=== PATIENT | female | born 2005 | race Caucasian/White ===

== ENCOUNTER 2025-06-27 13:30 | Outpatient (RCR) | payer MEDICAID, SELFPAY ==
--- NOTE | 2025-06-20 14:21 | PT.OIERPT ---
PT OP Initial Eval Patient Information Outpatient Physical Therapy Treatment Date: 06/20/25 Visit Reasons: PAIN IN LEFT KNEE Medical Diagnosis: Left Knee Pain Treatment Dx #1: Left Knee Pain Treatment Dx #2: Left Knee Instability Start of Care: 06/20/25 Date of Onset: 1 year ago Smoking Status Smoking Status: Never smoker Initial Assessment Subjective: Pt is a 20 y/o female reports of chronic left knee pain (04/06) with instability ~ 1 year ago after a horse kicked her knee. Pt further mention she had a few more recent incident falling from the horse hurting her left knee. Pt's past MRI showed bone contusion and mild ACL sprain. No recent imaging has been done. Pt has limitation with standing, walking, chores, balance, riding horse, and performing recreational activities. Objective: Left Knee AROM: all motions are WNL Left Knee MMTs: grossly 4-/5 Left Hip MMTs: grossly 3+/5 Special Test (+) MCL stress test (+) Elham (+) Thessaly Palpation: TTP medial joint line SLS: unable Assessment: Pt demonstrate left medial knee pain leading to difficulty with ADLs. Pt will attempt physical therapy if pain persist Pt will be refer back to provider for further consultation Short Term and Halfway Goals 1) Increase left knee MMTs grossly to 4/5 in 6 wks to be able to perform squatting activities 2) Decrease knee pain to 2/10 in 6 wks to be able to ride horse 3) Increase hip MMTs grossly to 4-/5 in 6 wks to be able to perform recreational activities 4) Increase SLS to 20 sec in 6 wks to be able to perform self care activities 5) Indep with HEP Treatment Plan 1) Manual Therapy 2) Therapeutic Activities 3) Therapeutic Exercises 4) Modalities (ice, heat) 5) Balance Training Frequency and Duration: 2 x wk for 6 wk Certification Dates: 06/20/25 to 09/19/25 Procedure Charges OP PT Eval Mod Complex 30 minutes: Yes
--- NOTE | 2025-06-27 14:10 | PT.ODAYNRPT ---
PT Outpatient Daily Note OP Daily Note Outpatient Physical Therapy Treatment Date: 06/27/25 Visit Reasons: PAIN IN LEFT KNEE Subjective: Pt irritated and may have hurt her knee more today. 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 Pt's knee buckle x 2 after the incident. Objective: Please see flow chart for list of ther ex performed Assessment: supine exercises performed today due to reported incident. Pt had difficulty with exercises due to pain. Post ice helped the pain and soreness Plan: Continue with PT Length of Time (minutes) of Treatment: 30 Minutes Procedure Charges Therapeutic Exercise 30 minutes: Yes
== END 2025-06-27 23:59 | disposition home or self-care (01) ==
LOC: CPTX 13:30
PROVIDERS: PCP Physician Assistant Medical; Referring Provider Physician Assistant Medical; Visit Provider Physician Assistant Medical
DX: M25.562 Pain in left knee (principal); M25.362 Other instability, left knee; G89.29 Other chronic pain; R26.2 Difficulty in walking, not elsewhere classified; R26.89 Other abnormalities of gait and mobility
CPT/HCPCS: 97110; 97162

== ENCOUNTER 2025-07-18 14:30 | Outpatient (RCR) | payer MEDICAID, SELFPAY ==
--- NOTE | 2025-06-29 14:14 | PT.ODAYNRPT ---
PT Outpatient Daily Note OP Daily Note Outpatient Physical Therapy Treatment Date: 06/29/25 Visit Reasons: Pain in left knee Subjective: Pt's knee is hurting more. 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 Pt's knee continues to buckle Objective: Please see flow chart for list of ther ex performed Assessment: tolerate exercises performed with minimal pain; post ice helped with pain Plan: Continue with PT Length of Time (minutes) of Treatment: 30 Minutes Procedure Charges Therapeutic Exercise 30 minutes: Yes
--- NOTE | 2025-07-07 12:01 | PT.ODAYNRPT ---
PT Outpatient Daily Note OP Daily Note Outpatient Physical Therapy Treatment Date: 07/07/25 Visit Reasons: Pain in left knee Subjective: Pt's knee is about the same. Pt seen chiropractor and was not able to get adjusted on her left side due to knee pain. Pt has stopped some activities but continues to have knee pain Objective: Please see flow chart for list of ther ex performed Assessment: patient continues to have knee pain unable to progress patient to closed chain exercises Plan: Continue with PT Length of Time (minutes) of Treatment: 30 Minutes Procedure Charges Therapeutic Exercise 30 minutes: Yes
--- NOTE | 2025-07-14 16:15 | PT.ODAYNRPT ---
PT Outpatient Daily Note OP Daily Note Outpatient Physical Therapy Treatment Date: 07/14/25 Visit Reasons: Pain in left knee Subjective: Pt's knee continues to hurt and feels unstable. No change in pain lately Objective: Please see flow chart for list of ther ex performed Assessment: all exercises modified to isometric exercises with good tolerance. Post ice helped with pain and soreness Plan: Continue with PT Length of Time (minutes) of Treatment: 30 Minutes Procedure Charges Therapeutic Exercise 30 minutes: Yes
--- NOTE | 2025-07-18 15:33 | PT.ODS1RPT ---
PT OP Progress/Discharge Note Date of Service: 07/18/25 Progress Note/DC Note Progress Note/Discharge Note: DC Note Patient Information Visit Reasons: Pain in left knee Medical Diagnosis: Left Knee Pain Treatment Dx #1: Left Knee Pain Treatment Dx #2: Left Knee INstability Service Discharge Date: 07/18/25 Status Subjective: Pt's knee continues to hurt and feels unstable with activities. Pt still has 7/10 knee pain based upon activities. Pt has limitation with standing, chores, recreational activities, walking, and performing recreational activities. Objective: Left Knee AROM: all motions are WNL Left Knee MMTs: grossly 4-/5 Left Hip MMTs: grossly 3+/5 Special Test (+) MCL stress test (+) Melissa (+) Thessaly Palpation: TTP medial joint line Assessment: Pt demonstrate functional knee mobility, however, continues to have pain with instability leading to difficulty with ADLs. Pt will no longer benefit from physical therapy due to plateau towards goals. Recommend patient to follow up with PCP for further consultation; thank you for your referrals. Plan: D/C home and follow up with PCP Procedure Charges Therapeutic Exercise 30 minutes: Yes
== END 2025-07-28 23:59 | disposition home or self-care (01) ==
LOC: CPTX 14:30
PROVIDERS: PCP Physician Assistant Medical; Referring Provider Physician Assistant Medical; Visit Provider Physician Assistant Medical
DX: M25.562 Pain in left knee (principal); M23.52 Chronic instability of knee, left knee; R26.2 Difficulty in walking, not elsewhere classified; R26.89 Other abnormalities of gait and mobility
CPT/HCPCS: 97110